=== PATIENT | male | born 1975 | race Two or more races ===

== ENCOUNTER 2024-10-12 12:58 | Emergency (ER) | payer OTHER ==
[~2024-10-12] VITALS: Ht 172.7 cm; Wt 74.8 kg
[2024-10-12] MEDS ORDERED: DIPHENHYDRAMINE HCL 50 MG/ML VIAL 1ML IV ONE (16:00)
[2024-10-12] MEDS ORDERED: DIPHENHYDRAMINE HCL 50 MG/ML VIAL 1ML ONE (16:16)
[2024-10-12 17:27] LABS: BASO % 0.6 % (0.1-1.2); EOS # 0.24 (0.04-0.54); EOS % 4.8 % (0.7-7.0); HEMATOCRIT 39.5 % (40.1-51.0); HEMOGLOBIN 13.9 g/dL (13.7-17.5); LYMPH # 1.18 (1.18-3.74); LYMPH % 23.6 % (19.3-53.1); MEAN CORPUSCULAR HEMOGLOBIN 29.2 pg (25.6-32.2); MONO # 0.46 (0.24-0.82); MONO % 9.2 % (4.7-12.5); NEUT # 3.07 (1.56-6.13); NEUT % 61.2 % (34.0-71.1); PLATELET COUNT 351 K/uL (163-369); RED BLOOD COUNT 4.76 M/uL (4.63-6.08); RED CELL DISTRIBUTION WIDTH 12.6 % (11.6-14.4)
[2024-10-12] MEDS ORDERED: PEPCID20 MG PO (18:01)
[2024-10-12] MEDS ORDERED: BENADRYL ALLERG50 MG PO (18:01)
[2024-10-12] MEDS ORDERED: MEDROLPACK PO (18:01)
== END 2024-10-12 18:07 ==
LOC: ER 13:49
PROVIDERS: General Practice
DX: T78.40XA Allergy, unspecified, initial encounter (principal); X58.XXXA Exposure to other specified factors, initial encounter; Z91.013 Allergy to seafood